=== PATIENT | male | born 1965 | race Caucasian/White ===

== ENCOUNTER → 2017-08-18 | Outpatient (CLI) | payer BC ==
[~2017-08-18] MED LIST: CARDIZEM CD,CA180 MG PO; CARDIZEM CD180 MG PO; CARVEDILOL6.25 MG PO; LISINOPRIL5 MG PO; XARELTO20 MG PO
== END | disposition home or self-care (01) ==
LOC: CDC 09:54
DX: R94.31 Abnormal electrocardiogram [ECG] [EKG] (principal)
CPT/HCPCS: 93000